=== PATIENT | male | born 1995 | race African-American/Black ===

== ENCOUNTER 2017-12-14 03:24 | Emergency (ER) | payer OTHER ==
[~2017-12-14] VITALS: Ht 172.7 cm; Wt 111.6 kg
[~2017-12-14 03:24] MED LIST: CEFUROXIME500 MG PO; IBUPROFEN 600600 M1 PO; MOBIC15 MG PO; NEOMYCIN-POLY-7.5 ML OP; PREDNISONE 20 M20 MG PO; ZYRTEC10 M2 PO
[2017-12-14 03:28] VITALS: BP 131/77
[2017-12-14] MEDS ORDERED: IBUPROFEN 400400 M2 PO (03:53)
[2017-12-14] MEDS ORDERED: FLEXERIL PO (03:53)
== END 2017-12-14 04:16 | disposition home or self-care (01) ==
LOC: ER 03:24
DX: G44.309 Post-traumatic headache, unspecified, not intractable (principal); Z88.1 Allergy status to other antibiotic agents; Z88.8 Allergy status to other drugs, medicaments and biological substances